=== PATIENT | female | born 1955 | race Caucasian/White ===

== ENCOUNTER → 2019-05-08 12:41 | Outpatient (BNVA) | payer MEDICARE, MEDICAID, SELFPAY | PROVIDERS: Family Provider Family Medicine; PCP Family Medicine; Visit Provider Psychiatry & Neurology Psychiatry | DX: G47.19 Other hypersomnia (principal); F90.0 Attention-deficit hyperactivity disorder, predominantly inattentive type; F33.42 Major depressive disorder, recurrent, in full remission | CPT/HCPCS: 99213 ==

== ENCOUNTER → 2019-07-09 07:32 | Outpatient (BNVA) | payer MEDICARE, MEDICAID, SELFPAY | PROVIDERS: Family Provider Family Medicine; PCP Family Medicine; Visit Provider Psychiatry & Neurology Psychiatry | DX: F90.0 Attention-deficit hyperactivity disorder, predominantly inattentive type (principal); G47.19 Other hypersomnia; F33.42 Major depressive disorder, recurrent, in full remission | CPT/HCPCS: 99213 ==

== ENCOUNTER → 2019-09-16 07:30 | Outpatient (BNVA) | payer MEDICARE, MEDICAID, SELFPAY | PROVIDERS: Family Provider Family Medicine; PCP Family Medicine; Visit Provider Psychiatry & Neurology Psychiatry | DX: F33.42 Major depressive disorder, recurrent, in full remission (principal); F90.0 Attention-deficit hyperactivity disorder, predominantly inattentive type; G47.19 Other hypersomnia | CPT/HCPCS: 99213 ==

== ENCOUNTER → 2019-11-15 08:16 | Outpatient (BNVA) | payer MEDICARE, MEDICAID, SELFPAY | PROVIDERS: Family Provider Family Medicine; PCP Family Medicine; Visit Provider Psychiatry & Neurology Psychiatry | DX: G47.19 Other hypersomnia (principal); F33.42 Major depressive disorder, recurrent, in full remission; F90.0 Attention-deficit hyperactivity disorder, predominantly inattentive type; F90.2 Attention-deficit hyperactivity disorder, combined type | CPT/HCPCS: 99213 ==

== ENCOUNTER → 2020-02-18 07:31 | Outpatient (BNVA) | payer MEDICARE, MEDICAID, SELFPAY | PROVIDERS: Family Provider Family Medicine; PCP Family Medicine; Visit Provider Psychiatry & Neurology Psychiatry | DX: F90.0 Attention-deficit hyperactivity disorder, predominantly inattentive type (principal); G47.19 Other hypersomnia; F33.42 Major depressive disorder, recurrent, in full remission; E03.9 Hypothyroidism, unspecified | CPT/HCPCS: 99213 ==

== ENCOUNTER → 2020-05-14 07:57 | Outpatient (BNVA) | payer MEDICARE, MEDICAID, SELFPAY | PROVIDERS: Family Provider Family Medicine; PCP Family Medicine; Visit Provider Psychiatry & Neurology Psychiatry | DX: F33.42 Major depressive disorder, recurrent, in full remission (principal); F90.0 Attention-deficit hyperactivity disorder, predominantly inattentive type; G47.19 Other hypersomnia | CPT/HCPCS: 99214 ==

== ENCOUNTER → 2020-08-12 07:31 | Outpatient (BNVA) | payer MEDICARE, MEDICAID, SELFPAY | PROVIDERS: Family Provider Family Medicine; PCP Family Medicine; Visit Provider Psychiatry & Neurology Psychiatry | DX: F33.42 Major depressive disorder, recurrent, in full remission (principal); F90.0 Attention-deficit hyperactivity disorder, predominantly inattentive type; G47.19 Other hypersomnia | CPT/HCPCS: 99213 ==

== ENCOUNTER → 2020-11-02 10:17 | Outpatient (BNVA) | payer MEDICARE, MEDICAID, SELFPAY | PROVIDERS: Family Provider Family Medicine; PCP Family Medicine; Visit Provider Family Medicine | DX: Z13.6 Encounter for screening for cardiovascular disorders (principal); E03.9 Hypothyroidism, unspecified; N94.10 Unspecified dyspareunia; Z12.11 Encounter for screening for malignant neoplasm of colon; Z01.419 Encounter for gynecological examination (general) (routine) without abnormal findings | CPT/HCPCS: 80053; 80061; 84439; 84443; 85025; 88175 ==

== ENCOUNTER → 2020-11-04 09:39 | Outpatient (BNVA) | payer MEDICARE, MEDICAID, SELFPAY | PROVIDERS: Family Provider Family Medicine; PCP Family Medicine; Visit Provider Psychiatry & Neurology Psychiatry | DX: F33.42 Major depressive disorder, recurrent, in full remission (principal); F90.0 Attention-deficit hyperactivity disorder, predominantly inattentive type; G47.19 Other hypersomnia | CPT/HCPCS: 99214 ==

== ENCOUNTER → 2021-01-27 07:32 | Outpatient (BNVA) | payer MEDICARE, MEDICAID, SELFPAY | PROVIDERS: Family Provider Family Medicine; PCP Family Medicine; Visit Provider Psychiatry & Neurology Psychiatry | DX: F33.42 Major depressive disorder, recurrent, in full remission (principal); F90.0 Attention-deficit hyperactivity disorder, predominantly inattentive type; G47.19 Other hypersomnia | CPT/HCPCS: 99213 ==

== ENCOUNTER → 2021-04-23 09:24 | Outpatient (BNVA) | payer MEDICARE, MEDICAID, SELFPAY | PROVIDERS: Family Provider Family Medicine; PCP Family Medicine; Visit Provider Psychiatry & Neurology Psychiatry | DX: F33.42 Major depressive disorder, recurrent, in full remission (principal); F90.0 Attention-deficit hyperactivity disorder, predominantly inattentive type | CPT/HCPCS: 99213 ==

== ENCOUNTER → 2021-06-30 09:46 | Outpatient (BNVA) | payer MEDICARE, MEDICAID, SELFPAY | PROVIDERS: Family Provider Family Medicine; PCP Family Medicine; Visit Provider Psychiatry & Neurology Psychiatry | DX: F33.42 Major depressive disorder, recurrent, in full remission (principal); F90.0 Attention-deficit hyperactivity disorder, predominantly inattentive type; G47.19 Other hypersomnia | CPT/HCPCS: 99214 ==

== ENCOUNTER → 2021-07-29 13:38 | Outpatient (BNVA) | payer MEDICARE, MEDICAID, SELFPAY | PROVIDERS: Family Provider Family Medicine; PCP Family Medicine; Visit Provider Family Medicine | DX: E03.9 Hypothyroidism, unspecified (principal); L25.9 Unspecified contact dermatitis, unspecified cause; Z13.6 Encounter for screening for cardiovascular disorders | CPT/HCPCS: 80053; 84443; 85025 ==

== ENCOUNTER → 2023-07-18 12:10 | Outpatient (BNVA) | payer MEDICARE, MEDICAID, SELFPAY | PROVIDERS: Family Provider Family Medicine; PCP Family Medicine; Visit Provider Family Medicine | DX: Z13.6 Encounter for screening for cardiovascular disorders (principal); E03.9 Hypothyroidism, unspecified; K21.9 Gastro-esophageal reflux disease without esophagitis | CPT/HCPCS: 80053; 80061; 84443; 85025 ==

== ENCOUNTER 2023-08-09 11:18 | Outpatient (CLI) | payer MEDICARE, MEDICAID, SELFPAY ==
--- NOTE | 2023-08-09 11:30 | MM_ITS ---
WS: [id number] VIEWS: MLO and CC views both breasts. 3D digital tomosynthesis is also included in this exam. Comparison made with prior exam of 11/15/2007, 06/30/2008.. Findings: There was no sign of mass, architectural distortion or suspicious calcification in either breast. The re are scattered areas of fibroglandular density MM/[id number] Impression: BI-RADS: 1-Negative FOLLOW-UP: 1 Year Follow-up This mammogram was also analyzed by the Computer Aided Detection System R2 Imag e [employer].
== END 2023-08-09 11:19 | disposition home or self-care (01) ==
LOC: MOBLMAM 11:24
PROVIDERS: Family Provider Family Medicine; PCP Family Medicine; Visit Provider Family Medicine
DX: Z12.31 Encounter for screening mammogram for malignant neoplasm of breast (principal); R92.323 Mammographic fibroglandular density, bilateral breasts
CPT/HCPCS: 77063; 77067

== ENCOUNTER → 2024-03-28 11:53 | Outpatient (BNVA) | payer MEDICARE, MEDICAID, SELFPAY | PROVIDERS: Family Provider Family Medicine | DX: Z13.6 Encounter for screening for cardiovascular disorders (principal); E03.9 Hypothyroidism, unspecified | CPT/HCPCS: 80053; 80061; 84439; 84443; 85025 ==

== ENCOUNTER → 2025-02-25 14:27 | Outpatient (BNVA) | payer MEDICARE, SELFPAY | DX: E03.9 Hypothyroidism, unspecified (principal) | CPT/HCPCS: 80053; 80061; 84443 ==